=== PATIENT | female | born 1965 | race Caucasian/White ===

== ENCOUNTER 2017-07-07 08:55 | Observation (INO) | payer OTHER ==
[2017-07-07] MEDS ORDERED: Pantoprazole 40 MG VIAL ONE (09:22)
[2017-07-07 09:40] LABS: ALT (SGPT) 47 U/L (8-55); AST (SGOT) 46 U/L (5-34); Albumin 4.4 g/dL (3.5-5.0); Alkaline Phosphatase 107 U/L (40-150); Anion Gap 15 mmol/L (10-20); BUN (Urea Nitrogen) 13 mg/dL (7.0-18.7); Bilirubin, Total 0.6 mg/dL (0.2-1.2); CKMB 0.2 ng/mL (0-6.6); Calc. Creatinine Clearance 0 mL/min (70-130); Calcium 9.8 mg/dL (7.8-10.44); Carbon Dioxide 20 mmol/L (22-29); Chloride 106 mmol/L (98-107); Estimated GFR-MDRD 62; Globulin 3.6 g/dL (2.4-3.5); Glucose 131 mg/dL (70-105); Lipase 82 U/L (8-78); Potassium 4.1 mmol/L (3.5-5.1); Sodium 137 mmol/L (136-145); Troponin I Less than 0.010 ng/mL (< 0.028)
[2017-07-07 09:49] LABS: #Basophils 0.1 thou/uL (0.0-0.2); #Eosinphils 0.4 thou/uL (0.0-0.7); #Monocytes 0.8 thou/uL (0.11-0.59); #Neutrophils 9.2 thou/uL (1.40-6.50); %Basophils 1.1 % (0.0-1.0); %Eosinophils 2.8 % (0.0-10.0); %Monocytes 6.4 % (0.0-10.0); %Neutrophils 73.7 % (42.0-75.0); Hemoglobin 17.2 g/dL (12.0-16.0); Mean Corpuscular HGB CONC 33.6 g/dL (32.0-36.0); Mean Corpuscular Volume 92.2 fl (81.0-99.0); Mean Platelet Volume 11.2 fL (7.4-10.4); Platelet Count 207 thou/uL (130-400); RBC Distribution Width 11.9 % (11.5-14.5); Red Blood Cell (RBC) Count 5.55 mill/uL (4.20-5.40); White Blood Cell (WBC) Count 12.5 thou/uL (4.8-10.8)
[2017-07-07] MEDS ORDERED: Ondansetron HCl/PF 4 MG/2 ML Vial ONE (10:28)
[2017-07-07 11:38] VITALS: BMI 33.7
[2017-07-07] MEDS ORDERED: Ondansetron HCl/PF 4 MG/2 ML Vial IVP PRN (12:14)
[2017-07-07] MEDS ORDERED: Ondansetron ODT 4 MG TAB PO PRN (12:14)
[2017-07-07] MEDS ORDERED: Sodium Chloride 0.9% 1,000 ML IV SCH (12:15)
[2017-07-07] MEDS: Sodium Chloride 0.9% 1,000 ML IV SCH ×4 (12:30→18:07)
[2017-07-07] MEDS: Nicotine 21 MG PATCH TD SCH (14:46)
--- NOTE | 2017-07-07 14:57 | HP ---
CHIEF COMPLAINT: Epigastric pain. HISTORY OF PRESENT ILLNESS: A 52-year-old female who presented to the outpatient clinic setting with complaints of epigastric pain that radiates towards her back along with pain located to her left upper quadrant present for the last 4 days; that began suddenly and has been constant since that time. She reported her symptoms to be worse with eating and has had accompanying nausea and poor intake. She denies having any recent alcohol use and does have an intact gallbladder. She has no prior history of pancreatitis. She does complain of feeling subjectively warm, but has no documented fever. Due to her symptoms and being tachycardic in the clinical setting, she was further evaluated at [facility] where she did have a mildly elevated lipase level of [address] of the abdomen and pelvis was done with preliminary read of pseudocyst and advised ultrasound for further diagnostic imaging per the ER physician. The patient was started on intravenous fluids and had been placed n.p.o. in order to treat her pancreatitis. She will likely need follow up as an outpatient with Gastroenterology. PAST MEDICAL HISTORY: Anxiety and depression. PAST SURGICAL HISTORY: Corneal lens implant in 2009, tubal ligation and appendectomy in 2004. SOCIAL HISTORY: The patient is a smoker. ALLERGIES: Allergic to HONEY and RED DYE. FAMILY HISTORY: Noncontributory. CURRENT MEDICATIONS: Citalopram 40 mg p.o. daily; clonazepam 1 mg one tablet in the morning, one in the evening and two at bedtime and acyclovir 800 mg p.o. daily. REVIEW OF SYSTEMS: Constitutional: The patient denies fever or chills. Ear, Nose and Throat: Denies sore throat, earache or nasal congestion. Cardiovascular: Denies chest pain or palpitations. Respiratory: Denies cough or shortness of breath. Gastrointestinal: Complains of abdominal pain and nausea. Skin: Denies rash. Neurological: Denies headache. LABORATORY DATA: White blood cell count is 12.5, hemoglobin and hematocrit is 17.2 and 51.2, platelets are 207. Sodium is 137, potassium is 4.1, BUN is 13, creatinine is 0.96 and glucose is 131. AST is 46, ALT is 47 and lipase is 82. Normal cardiac enzymes. PHYSICAL EXAMINATION: VITAL SIGNS: Temperature is 98.8, pulse is 74, respiratory rate is 16, oxygen saturation is 96% on room air and blood pressure is 139/80. GENERAL: The patient is alert and oriented and in no acute distress. FACE: No asymmetry. EYES: Conjunctivae are clear. Extraocular muscles are intact bilaterally. No discharge. HENT: Within normal limits. Oral cavity has moist mucous membranes. NECK: Supple, full range of motion. No lymphadenopathy, no meningeal signs. CARDIOVASCULAR: Regular rate and rhythm. Normal S1 and S2. No murmurs, rubs or gallops. RESPIRATORY: Clear to auscultation bilaterally without wheezes, rales or rhonchi. GASTROINTESTINAL: Epigastric and left upper quadrant tender to palpation with no rebound or guarding. EXTREMITIES: No clubbing, cyanosis or edema. SKIN: No rashes. NEUROLOGIC: Nonfocal. ASSESSMENT AND PLAN: 1. Pancreatitis. The patient has been placed n.p.o. and started on intravenous fluids. We will continue this today through evening and plan to advance to clears tomorrow as tolerated and follow up lipase level in the morning. We will need to follow up the official CT scan findings and ultrasound findings regarding the report concerning for pseudocyst. As stated, she will likely need follow up with the copy chaser as an outpatient. 2. Leukocytosis, which is likely secondary to fluid contractions. Her hemoglobin and hematocrit is elevated as well. I suspected this will return to normal upon reevaluation of her CBC in the morning. She is afebrile and hemodynamically stable. 3. Anxiety and depression. We will continue her usual home medications. 4. Smoker. Advised the patient on smoking cessation and provided her with the nicotine patch. 5. Prophylaxis. We will provide famotidine and Lovenox. Follow up labs in the morning. We will plan to advance diet as tolerated and follow up with GI as an outpatient. Dr. Licea will be injection molding machine setter over this weekend to follow up with the patient. Suspect her stay will be a couple of days. ELLIOT
[2017-07-07] MEDS: Acetaminophen 325 MG TAB PO PRN (16:42)
[2017-07-07] MEDS: Enoxaparin Sodium 30 MG/0.3 ML SYRINGE SC SCH (17:52)
--- NOTE | 2017-07-07 20:14 | CT ---
CT ABDOMEN AND PELVIS WITHOUT CONTRAST 07/07/17 Axial slices were acquired for evaluation of abdominal pain using no oral or IV contrast. Coronal an d sagittal reconstructions were done subsequently. The lung bases are clear. The liver, spleen, kidneys, adrenal glands, and abdominal aorta show no ac [place] findings. No stones were seen in the gallbladder. The major finding on this study is a 3.3 cm rounded cystic lesion at the junction of the body and ta il of the pancreas. There are some small amounts of peripancreatic stranding and in general the panc reas seems somewhat swollen. The findings are most consistent with pancreatitis, possibly with a pse udocyst, however, there are cystic neoplasms of the pancreas that can occur and so this remains in t he differential diagnosis at the moment. The findings should be correlated with clinical lab work an d there will need to be followup of the cystic lesion regardless. The bowel is nondistended. There is no inflammatory change around bowel or free fluid. No bowel wall thickening was noted. CT of the pelvis shows no pelvic masses, fluid collections or inflammatory changes. The bony structu res showed no acute change. An incidental finding was slight anterior compression of T11 which does not appear acute. IMPRESSION: Findings suspicious for pancreatitis, possibly with a pseudocyst at the junction of the body and the tail. As noted above, however, cystic neoplasms of the pancreas do exist and the amount of inflamma tory change around the pancreas right now is not excessive. Further lab work and imaging followup of this lesion is needed. Findings and followup discussed with Dr. Beckford at 0948 on 07/07/17. POS: HOME
[2017-07-07] MEDS: Famotidine 20 MG TAB PO SCH (20:22)
[2017-07-07] MEDS: clonazePAM 0.5 MG TAB PO SCH (20:22)
[2017-07-07] MEDS ORDERED: Non-Formulary Item 1 EACH (Clonazepam [Clonazepam] 1 MG) PO SCH (21:00)
[2017-07-07] MEDS: Zolpidem Tartrate 5 MG TAB PO SCH (22:38)
[2017-07-08 06:16] LABS: #Basophils 0.1 thou/uL (0.0-0.2); #Eosinphils 0.5 thou/uL (0.0-0.7); #Lymphocytes 2.3 thou/uL (1.20-3.40); #Monocytes 0.8 thou/uL (0.11-0.59); #Neutrophils 5.7 thou/uL (1.40-6.50); %Basophils 1.6 % (0.0-1.0); %Eosinophils 5.3 % (0.0-10.0); %Lymphocytes 24.5 % (21.0-51.0); %Monocytes 7.9 % (0.0-10.0); %Neutrophils 60.8 % (42.0-75.0); Hemoglobin 15.1 g/dL (12.0-16.0); Mean Corpuscular HGB CONC 32.2 g/dL (32.0-36.0); Mean Corpuscular Hemoglobin 30.4 pg (27.0-31.0); Mean Corpuscular Volume 94.5 fl (81.0-99.0); Mean Platelet Volume 9.3 fL (7.4-10.4); Platelet Count 199 thou/uL (130-400); Red Blood Cell (RBC) Count 4.98 mill/uL (4.20-5.40); White Blood Cell (WBC) Count 9.4 thou/uL (4.8-10.8)
[2017-07-08 06:50] LABS: ALT (SGPT) 39 U/L (8-55); AST (SGOT) 43 U/L (5-34); Alkaline Phosphatase 98 U/L (40-150); Anion Gap 14 mmol/L (10-20); BUN (Urea Nitrogen) 13 mg/dL (7.0-18.7); Bilirubin, Total 0.6 mg/dL (0.2-1.2); Calc. Creatinine Clearance 142 mL/min (70-130); Carbon Dioxide 23 mmol/L (22-29); Chloride 107 mmol/L (98-107); Estimated GFR-MDRD 76; Globulin 2.7 g/dL (2.4-3.5); Glucose 81 mg/dL (70-105); Lipase 47 U/L (8-78); Potassium 4.4 mmol/L (3.5-5.1); Protein, Total 6.7 g/dL (6.0-8.3); Sodium 140 mmol/L (136-145)
[2017-07-08] MEDS: Sodium Chloride 0.9% 1,000 ML IV SCH (07:05)
[2017-07-08] MEDS: Acyclovir 200 mg Capsule PO SCH (07:59)
[2017-07-08] MEDS: Nicotine 21 MG PATCH TD SCH (08:00)
[2017-07-08] MEDS: clonazePAM 0.5 MG TAB PO SCH ×2 (08:00→20:02)
[2017-07-08] MEDS: Famotidine 20 MG TAB PO SCH ×2 (08:00→20:01)
[2017-07-08] MEDS: FLUOROMETHOLONE R EYE SCH (08:19)
[2017-07-08] MEDS ORDERED: FLUOROMETHOLONE R EYE SCH (09:00)
[2017-07-08] MEDS ORDERED: ACYCLOVIR 800 MG PO SCH (09:00)
[2017-07-08] MEDS ORDERED: Non-Formulary Item 1 EACH (Citalopram Hydrobromide [Celexa] 40 MG) PO SCH (09:00)
[2017-07-08] MEDS: Dextrose 5 %-0.45 % NaCl 1,000 ML IV SCH ×2 (11:38→19:58)
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
[2017-07-08] MEDS: HYDROcodone/Acetaminophen 7.5/325 mg Tablet PO PRN (16:00)
[2017-07-08] MEDS: Enoxaparin Sodium 30 MG/0.3 ML SYRINGE SC SCH (17:58)
[2017-07-08] MEDS: Docusate 100 MG CAP PO SCH (20:01)
[2017-07-08] MEDS: Zolpidem Tartrate 5 MG TAB PO SCH (21:08)
[2017-07-09] MEDS: HYDROcodone/Acetaminophen 7.5/325 mg Tablet PO PRN ×3 (00:35→10:40)
[2017-07-09] MEDS: Dextrose 5 %-0.45 % NaCl 1,000 ML IV SCH ×2 (03:43→11:50)
[2017-07-09 05:49] VITALS: BP 121/74; TEMP 98.5
[2017-07-09] MEDS: clonazePAM 0.5 MG TAB PO SCH (09:48)
[2017-07-09] MEDS: Acyclovir 200 mg Capsule PO SCH (09:49)
[2017-07-09] MEDS: Docusate 100 MG CAP PO SCH (09:50)
[2017-07-09] MEDS: FLUOROMETHOLONE R EYE SCH (09:50)
[2017-07-09] MEDS: Famotidine 20 MG TAB PO SCH (09:50)
[2017-07-09] MEDS: Nicotine 21 MG PATCH TD SCH (09:51)
[2017-07-09] MEDS: Acetaminophen 325 MG TAB PO PRN (09:57)
--- NOTE | 2017-07-10 06:44 | DIS ---
DATE OF ADMISSION: 07/07/2017 DATE OF DISCHARGE: 07/09/2017 PRIMARY CARE PHYSICIAN: Serjio Ruiz MD DISCHARGE ATTENDING: Asha Licea M.D. FINAL DIAGNOSES: 1. Abdominal pain with slightly elevated lipase. 2. Intestinal gas pains. 3. Mild dehydration. 4. Intractable nausea. 5. Recent excessive alcohol use. 6. Fatty liver/Steatosis. 7. Gallbladder disease with incidental finding of gallbladder wall thickening with bile sludge. 8. Obesity. 9. Tobacco use. 10. Depression. 11. Gastroesophageal reflux disease. 12. Insomnia HISTORY OF PRESENT ILLNESS AND COURSE IN THE [place]: Ms. Han is a 52-year- old female, presented to the [facility] complaining of epigastric pain that radiates to her left upper quadrant all the way to the back for the past 4 days. This was associated with intractable nausea and decreased appetite. She was sent by her PCP to emergency room for further evaluation. Her labs demonstrated slightly elevated lipase of 82. CT of the abdomen showed gallbladder that was small and contracted, normal appearing liver , spleen, pancreas, and kidneys; however, also further CT of the abdomen showed presence of a 3.3 cm rounded cystic lesion on the junction of the body and tail of the pancreas with small amount of peripancreatic stranding and in general pancreas appear swollen. Abdominal ultrasound demonstrated fatty liver and gallbladder sludge with no stones, mild thickening of the gallbladder wall. Pancreas was not visualized because of considerable amount of bowel gas. Her initial labs showed elevated white count of 12.5, hemoglobin of 17, hematocrit of 51, neutrophils of 73%. Her lipase was elevated at 82, AST was 46, ALT was 47. Patient was subsequently started on IV fluids and IV pain meds. The patient at that time was meeting criteria for treatment for mild pancreatitis with dehydration. She was placed on n.p.o. and continued with her IV fluids. Her repeat labs show normal level of lipase. Her white count was back to normal. Patient was slowly transitioned to full liquids, she tolerated without worsening abdominal pain. She also tolerated oral pain medicine. Re- evaluation of patient this morning noted that she is stable and able to manage her illness at home. She is instructed to slowly advance her diet from full liquid so soft diet and slowly advance it to full diet. She will also continue with stool softener and over the counter laxatives as well as H2 lilly. She will follow up with Dr. Ruiz in 2-3 days. She will need a repeat ultrasound of the upper abdomen for better characterization of the pancreas. She will also need colon screening and this can be arranged as an outpatient. MEDICATIONS: 1. Colace 100 mg b.i.d. p.r.n. for constipation. 2. Famotidine 20 mg b.i.d. 3. [place] 7.5/325 one tablet every 4 hours p.r.n. as needed. 4. Nicotine patch 21 mg daily. 5. Zofran 4 mg every 6 hours p.r.n. for nausea or vomiting. 6. Ambien 10 mg at bedtime p.r.n. for insomnia. 7. Celexa 40 mg 1 tablet daily. 8. Clonazepam 1 mg b.i.d. p.r.n. for anxiety. 9. Acyclovir 800 mg daily. 10. Ophthalmic drops solution. ACTIVITIES: ad jennifer. DIET: Currently, she is placed on full liquid and will transition to soft diet in a.m. If she tolerates, she will continue with full diet. INSTRUCTIONS: She will follow up with Dr. Ruiz, patient will call and schedule for the appointment. The patient verbalized understanding. If patient experiences any recurrence of worsening abdominal pain, nausea, vomiting, she is advised to proceed to the emergency room for further evaluation and treatment. ELLIOT
--- NOTE | 2017-07-11 07:36 | ULT ---
ABDOMINAL ULTRASOUND 07/07/17 Ultrasonography of the abdomen was performed after visualization of a cystic appearing lesion in the pancreas on the CT scan. The liver is somewhat echo dense suggesting there may be some fatty infiltration. It measured 16.1 c m in oblique sagittal length which is borderline in size. The gallbladder contains sludge within but no focal stones were seen. The wall thickness is borderline at 3 mm. The common bile duct size is b orderline at 6 mm in caliber. The kidneys showed no mass or hydronephrosis. The right kidney is 10.7 cm long and the left 10.3 cm. The spleen was normal in size. The aorta and inferior vena cava were unremarkable. Regarding the pancreas, there was a considerable amount of bowel gas which partially obscures it. In particular, the more distal portions of the pancreas were completely obscured by gas in the area of concern. Thus, no comments can be made one way or the other about the lesions seen on CT. IMPRESSION: 1. Pancreas seen incompletely and this study yields no additional information. 2. Sludge in the gallbladder with possible mild wall thickening and borderline common duct size . 3. Possible fatty infiltration of the liver. POS: HOME
== END 2017-07-09 12:24 | disposition home or self-care (01) ==
LOC: BURERS 08:55 → INTOOBSV 10:05 → BURMED 10:05
PROVIDERS: ADMIT Family Medicine; ATTEND Family Medicine
DX: R14.1 Gas pain (principal); R74.8 Abnormal levels of other serum enzymes; R11.0 Nausea; E86.0 Dehydration; F32.9 Major depressive disorder, single episode, unspecified; F41.9 Anxiety disorder, unspecified; F17.200 Nicotine dependence, unspecified, uncomplicated; F10.10 Alcohol abuse, uncomplicated; G47.00 Insomnia, unspecified; K82.8 Other specified diseases of gallbladder; K76.0 Fatty (change of) liver, not elsewhere classified; K21.9 Gastro-esophageal reflux disease without esophagitis; E66.9 Obesity, unspecified; Z68.33 Body mass index [BMI] 33.0-33.9, adult; Z91.018 Allergy to other foods; Z91.041 Radiographic dye allergy status; Z90.49 Acquired absence of other specified parts of digestive tract; Z98.51 Tubal ligation status; Z96.1 Presence of intraocular lens; Z79.899 Other long term (current) drug therapy
CPT/HCPCS: 36415; 74176; 76700; 80053; 82553; 83690; 84484; 85025; 93005; 96361; 96372; 96374; 96375; 96376; A4216; C9113; G0378; J1650; J2270; J2405; Q0162

== ENCOUNTER 2017-07-14 08:32 | Outpatient (CLI) | payer OTHER ==
--- NOTE | 2017-07-14 16:57 | ULT ---
ABDOMINAL ULTRASOUND 07/14/17 Comparison is made with a 07/[address] scan. The patient is less gassy today than on the last ultrasound and one can now view the pancreas slightly better. Today's exam does faintly show a cyst in the pancreas but measures 3.0 x 2.9 x 2.6 cm. Overall, the pancreas is seen poorly. The gallbladder contains no signs of stones or wall thickening. The common bile duct was 6 mm in melissa iber which is borderline. The liver is 16.5 cm in oblique sagittal length which is slightly enlarged . No dilated ducts were seen. Portal venous flow is towards the liver as expected. The right kidney was 10.9 cm long and the left was 10.6 cm. Both appear normal. The spleen is normal in size. IMPRESSION: Today's ultrasound faintly shows a 3 cm cyst near the junction of the body and tail of the pancreas, most compatible with a pseudocyst. I do believe that this should be followed to complete resolution to be sure there is no other pathology there. In this patient's case, I feel this would be best don e via CT examinations as she does not image exceptionally well by ultrasound. POS: HOME
== END 2017-07-14 08:33 | disposition home or self-care (01) ==
LOC: BURULT 08:32
PROVIDERS: ATTEND Family Medicine
DX: K85.90 Acute pancreatitis without necrosis or infection, unspecified (principal)
CPT/HCPCS: 76700

== ENCOUNTER 2017-07-20 08:00 | Outpatient (CLI) | payer OTHER ==
--- NOTE | 2017-07-20 22:18 | CT ---
CT OF THE ABDOMEN WITH AND WITHOUT CONTRAST AND DELAYED IMAGES WITH RECONSTRUCTIONS 07/20/17 Comparison is made with the 07/07 study. Scans were initially done without IV contrast. Arterial, then delayed venous phase images were obtained with attention to the pancreatic region. The cysts at the junction of the body and tail of the pancreas has decreased in size slightly in the interval. Previously, was measured at about 3.3 cm in size and today it is close to 3.0 cm. There i s no enhancement within this cystic area on either arterial or delayed phase imaging. The pancreas d oes not appear quite as swollen as it was previously and there is less streaking around it. The lung bases are clear. The liver, spleen, gallbladder, kidneys, and abdominal aorta showed no acu te changes. The visible GI tract structures of the stomach, proximal small bowel, and portions of th e colon showed no thickening or other acute changes. IMPRESSION: 1. Slight decrease in size of the pancreatic cyst (3.0 cm today compared to 3.3 cm before). Les s swelling in peripancreatic streaking than before. 2. No abnormal enhancement within the cyst on arterial or delayed images, further confirming th at it is likely a cyst and not a neoplasm. POS: HOME
== END 2017-07-20 08:01 | disposition home or self-care (01) ==
LOC: BURCT 08:00
PROVIDERS: ATTEND Family Medicine
DX: K86.3 Pseudocyst of pancreas (principal)
CPT/HCPCS: 74170

== ENCOUNTER 2019-04-01 19:54 | Emergency (ER) | payer OTHER ==
[2019-04-01] MEDS ORDERED: HYDROcodone/Acetaminophen 5/325 mg Tablet ONE (20:48)
--- NOTE | 2019-04-01 22:06 | RAD ---
3 VIEWS RIGHT ANKLE: HISTORY: Pain AP, lateral and oblique views right ankle obtained. FINDINGS: There is extensive soft tissue swelling lateral to the right ankle. This is concerning for soft tissu e injury. There may be a small osseous fracture involving the inferior aspect of the medial malleolus. Correlat ion with elective MRI to further characterize may be of use. IMPRESSION: Possible medial malleolar small avulsion fracture. Transcribed Date/Time: 04/01/2019 10:07 PM
== END 2019-04-01 21:01 | disposition home or self-care (01) ==
LOC: BURERS 19:54
DX: S93.401A Sprain of unspecified ligament of right ankle, initial encounter (principal); E11.9 Type 2 diabetes mellitus without complications; Z86.73 Personal history of transient ischemic attack (TIA), and cerebral infarction without residual deficits; F41.9 Anxiety disorder, unspecified; F17.210 Nicotine dependence, cigarettes, uncomplicated; Z79.899 Other long term (current) drug therapy; X50.1XXA Overexertion from prolonged static or awkward postures, initial encounter

== ENCOUNTER 2022-08-10 08:27 | Outpatient (CLI) | payer OTHER ==
[2022-08-10] MEDS ORDERED: Iopamidol 370 76% 100 ML VIAL FS ONE (08:28)
== END 2022-08-10 08:28 | disposition home or self-care (01) ==
LOC: BURCT 08:27
PROVIDERS: ATTEND Family Medicine
DX: R10.13 Epigastric pain (principal); K86.2 Cyst of pancreas; R16.1 Splenomegaly, not elsewhere classified
CPT/HCPCS: 74177; Q9967

== ENCOUNTER 2023-01-22 16:34 | Emergency (ER) | payer OTHER ==
[2023-01-22 17:16] LABS: Band 5 % (5-11); Eosinophils 2 % (0-10); Hemoglobin 16.3 g/dL (12.0-16.0); INR-International Normal Ratio 0.9; Lymphocytes 14 % (21-51); MDiff Complete? YES; Mean Corpuscular HGB CONC 33.6 g/dL (32.0-36.0); Mean Corpuscular Volume 95.3 fl (78.0-98.0); Mean Platelet Volume 11.9 fL (7.4-10.4); Monocytes 4 % (0-10); Neutrophil 74 % (42-75); Platelet Count 291 10x3/uL (130-400); Prothrombin Time 12.4 sec (12.0-14.7); RBC Distribution Width 12.1 % (11.5-14.5); Red Blood Cell (RBC) Count 5.11 mill/uL (4.20-5.40); White Blood Cell (WBC) Count 15.6 10x3/uL (4.8-10.8)
[2023-01-22 17:17] LABS: PTT 27.6 sec (22.9-36.1)
[2023-01-22 17:21] LABS: Acetaminophen Less than 10.0 mcg/mL (10.0-30.0); Alcohol Less than 10 mg/dL (Less than 10); Salicylate Less than 8.0 mg/dL (15.0-30.0)
[2023-01-22 17:39] LABS: ALT (SGPT) 24 U/L (8-55); AST (SGOT) 30 U/L (5-34); Albumin 4.4 g/dL (3.5-5.0); Alkaline Phosphatase 143 U/L (40-110); Anion Gap 17 mmol/L (10-20); BUN (Urea Nitrogen) 10 mg/dL (9.8-20.1); Bilirubin, Total 0.2 mg/dL (0.2-1.2); Calc. Creatinine Clearance 0 mL/min (70-130); Calcium 9.9 mg/dL (7.8-10.44); Carbon Dioxide 25 mmol/L (22-29); Chloride 104 mmol/L (98-107); Estimated GFR 80; Globulin 3.3 g/dL (2.4-3.5); Glucose 99 mg/dL (70-105); Potassium 3.7 mmol/L (3.5-5.1); Protein, Total 7.7 g/dL (6.0-8.3); Sodium 142 mmol/L (136-145)
[2023-01-22] MEDS ORDERED: Aspirin Chewable 81 MG TAB ONE (17:58)
[2023-01-22] MEDS ORDERED: ALPRAZolam 0.5 MG TAB ONE (19:32)
== END 2023-01-22 19:43 | disposition short-term general hospital (02) ==
LOC: BURERS 16:34
DX: R42 Dizziness and giddiness (principal); D72.829 Elevated white blood cell count, unspecified; R07.9 Chest pain, unspecified; E11.9 Type 2 diabetes mellitus without complications; F17.210 Nicotine dependence, cigarettes, uncomplicated; Z79.899 Other long term (current) drug therapy
CPT/HCPCS: 36415; 36416; 70450; 71045; 80053; 80307; 84484; 85025; 85610; 85730; 93005; 94760; 96360

== ENCOUNTER 2024-08-16 08:47 | Outpatient (CLI) | payer OTHER | END 2024-08-16 08:48 | disposition home or self-care (01) | LOC: BURCT 08:47 | PROVIDERS: ATTEND Family Medicine | DX: K66.8 Other specified disorders of peritoneum (principal); R19.8 Other specified symptoms and signs involving the digestive system and abdomen; M51.379 Other intervertebral disc degeneration, lumbosacral region without mention of lumbar back pain or lower extremity pain; Z85.07 Personal history of malignant neoplasm of pancreas; Z90.81 Acquired absence of spleen; Z90.411 Acquired partial absence of pancreas | CPT/HCPCS: 74177 ==